=== PATIENT | male | born 1950 | race Caucasian/White ===

== ENCOUNTER 2016-09-07 12:37 | Inpatient (IN) ==
[2016-09-07 13:23] LABS: MANUAL DIFF NEEDED? NO
[2016-09-07 13:29] LABS: BASO% 0.7 % (0.0-0.8); EOS# 0.27 X1000 (0.0-0.7); EOS% 2.8 % (0.0-10.0); HEMATOCRIT 42.2 % (42.0-52.0); HEMOGLOBIN 13.5 g/dL (14.0-18.0); IMM GRAN# 0.06 X1000 (0.0-0.04); IMM GRAN% 0.6 % (0.0-0.5); LYMPH# 2.55 X1000 (1.2-3.4); LYMPH% 26.6 % (20.5-51.1); MCH 24.3 PG (27-31); MONO# 0.75 X1000 (0.11-0.59); MONO% 7.8 % (1.7-9.3); MPV 11.1 FL (7.4-10.4); NEUT% 61.5 % (42.2-75.2); PLT 307 X1000 (130-400); RBC 5.55 XMIL (4.7-6.1)
--- NOTE | 2016-09-07 13:45 | Diag Imaging Result Document ---
PROCEDURE NAME: HEAD W/O CONTRAST - 09/07/2016 CT BRAIN WITHOUT CONTRAST. DOSE REDUCTION PROTOCOL. FINDINGS: No parenchymal hemorrhage. No epidural or subdural hematoma. No subarachnoid hemorrhage. No mass identified on this noncontrasted exam. There is atrophy with chronic microvascular ischemic changes. Old lacune in the right basal ganglia. Prominent mucous in the ethmoid sinuses with a small amount in the frontal sinuses. There is also a small amount in the left maxillary sinus. IMPRESSION: 1. No hemorrhage. 2. Atrophy with chronic microvascular ischemic changes and an old right lacune. 3. Mild sinusitis. A preliminary report was given at 1:29 p.m..
[2016-09-07] MEDS ORDERED: ASPIRIN PO ONE (13:47)
--- NOTE | 2016-09-07 13:54 | PROVIDER DOCUMENTATION ---
This chart was entered by Antwan Medina Scribe, acting as scribe for Arcadio Olivarez MD. HPI-Neurological Disorder - General Chief Complaint: Stroke-Like Symptoms Stated Complaint: stroke like sx Time Seen by Provider: 09/07/16 12:46 Source: patient Allergies/Adverse Reactions: Patient Allergies Allergy/AdvReac Type Severity Reaction Status Date / Time No Known Allergies Allergy Verified 09/07/16 13:20 Home Medications: Home Medication List Medication Instructions Recorded Confirmed Last Taken Type Glyburide/Metformin HCl 1 each PO BID 09/07/16 09/07/16 09/07/16 10:30 History [Glyburide-Metformin 5-500 mg] Losartan Potassium [Cozaar] 25 mg PO DAILY 09/07/16 09/07/16 09/07/16 10:30 History SIMVAstatin [Zocor] 40 mg PO DAILY 09/07/16 09/07/16 09/07/16 10:30 History - History of Present Illness-Neuro Nature of Presenting Problem: PT C/O SLURRED SPEECH RIGHT SIDE FACIAL DROPPING AND RIGHT HAND NUMBNESS ONSET YESTERDAY MORNING. Onset/Duration: reports: 24 hours ago Timing: reports: still present Context: reports: impaired speech, facial droop Any recent trauma/injury?: reports: none Character of Deficits: reports: new weakness, impaired speech New weakness or altered sensation location:: reports: right facial, other ( RIGHT HAND NUMBNESS) Cognitive Baseline: alert, oriented x3 Gait Baseline: walks without assistance Associated Symptoms: reports: slurred speech, vision changes, other (RIGHJT HAND NUMBNESS). denies: short of breath, headache, decreased ability to walk or stand, fainting, confusion, chest pain, fever/chills, loss of consciousness Similar Symptoms Previously?: No Recently seen or treated by another doctor?: No Review of Systems - Adult - REVIEW OF SYSTEMS - ADULT Constitutional: denies: chills, fever, fatique Eyes: reports: double vision. denies: discharge, blurred vision Ears, Nose, Mouth & Throat: denies: hearing loss, sinus problem, throat swelling Cardiovascular: denies: chest pain, heart murmur, palpitations Respiratory: denies: cough, shortness of breath, wheezing Gastrointestinal: denies: abdominal pain, diarrhea, nausea, vomiting Genitourinary: denies: dysuria, flank pain, hematuria Musculoskeletal: denies: back pain, muscle aches, neck pain Integumentary: denies: hives, itching, rash Neurological: reports: numbness, slurred speech. denies: headache/migraines, loss of balance All Other Systems: Reviewed and Negative Past History - Adult - PAST MEDICAL HISTORY-ADULT Review of Records: reports: Nursing Assessment Review, Medications Reviewed Cardiovascular: reports: HTN Endocrine/Immune: reports: Diabetes Diabetes controlled by:: PO Meds - IMMUNIZATION STATUS Childhood Immunizations: See Nurse Assessment Flu Vaccine: See Nurse Assessment - FAMILY HISTORY Family History: reviewed, not pertinent - SOCIAL HISTORY Living Situation: family Physical Exam- Neurological - Physical Exam-Neuro General Appearance: alert, no apparent distress, mild distress Eye Exam: bilateral eye: normal inspection, PERRL, EOMI HENMT: normocephalic/atraumatic, moist mucous membranes, normal ENT inspection, TMs normal, pharynx normal Head Injury: no evidence of injury Neck: non-tender, full range of motion, supple, normal inspection Respiratory: chest non-tender, lungs clear, normal breath sounds, no pleuratic chest pain, no respiratory distress, no accessory muscle use Cardiovascular: normal peripheral pulses, regular rate, rhythm, no edema, no gallop, no JVD, no murmur Abdominal Exam: normal bowel sounds, non tender, soft, no organomegaly, no pulsatile mass Lymphatic: no adenopathy Extremity: normal range of motion, non-tender, normal gait, normal inspection, no pedal edema, no calf tenderness, normal capillary refill, 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 Exam: normal hearing, PERRL, abnormal speech, facial droop Coordination/Gait: normal finger to nose, normal gait, negative Romberg's sign Neurologic: facial droop Integumentary: normal color, normal turgor, warm/dry - Glascow Coma Scale Best Eye Response: (4) open spontaneously Best Verbal Response: (5) oriented Best Motor Response: (6) obeys commands Total Glascow Score: 15 Progress - PLAN OF CARE/RESULTS Progress/Plan/Lab Results: Vital Signs - 8 hr 09/07/16 12:38 Temperature 97.7 F Pulse Rate 87 Respiratory Rate 20 Blood Pressure 160/76 O2 Sat by Pulse Oximetry 100 Laboratory Results - last 24 hr 09/07/16 13:05 WBC 9.59 RBC 5.55 Hgb 13.5 L Hct 42.2 MCV 76.0 L MCH 24.3 L MCHC 32.0 L RDW Std Deviation 17.2 H Plt Count 307 MPV 11.1 H Immature Gran % (Auto) 0.6 H Neut % (Auto) 61.5 Lymph % (Auto) 26.6 [place] % (Auto) 7.8 Eos % (Auto) 2.8 Baso % (Auto) 0.7 Immature Gran # (Auto) 0.06 H Neut # (Auto) 5.89 Lymph # (Auto) 2.55 [place] # (Auto) 0.75 H Eos # (Auto) 0.27 Baso # (Auto) 0.07 Orders Category Date Time Status Aquino Cath Insertion ORDERED Care 09/07/16 13:19 Inactive NG/OG/Feeding Tube Insertion ORDERED Care 09/07/16 13:18 Inactive HEAD W/O CONTRAST [CT] Stat Exams 09/07/16 13:04 Draft CBC WITH ELECTRONIC DIFF [HEME] Stat Lab 09/07/16 13:05 Completed COMPREHENSIVE METABOLIC PANEL [CHEM] Stat Lab 09/07/16 13:05 Received UA NIMS W/REFLEX CULT [URINALYSIS] Stat Lab 09/07/16 13:04 Uncollected Aspirin Med 09/07/16 13:47 Once 325 mg PO NOW ONE EKG [EKG] Stat Ther 09/07/16 12:44 Ordered Result Diagrams: 09/07/16 13:05 - EKG 1 Time of EKG reading by physician:: 13:23 EKG Read and Signed by:: Arcadio Olivarez Rate: 87 Rhythm: NSR Gates: normal QRS: normal DE Interval: normal ST Wave: normal Departure - Departure Time of Disposition Decision: 13:53 DIAGNOSIS: CVA (cerebral vascular accident) Qualifiers: CVA mechanism: other Qualified Code(s): I63.8 - Other cerebral infarction Disposition: ADMITTED INPATIENT 09 Certified Medical Emergency: Emergent Condition: Fair Referrals and Follow-Ups: Luci Pickering MD [Primary Care Provider] - - Critical Care Note This patient required my direct & personal management of CC.: Yes Total Time (mins): 30 Critical Care Statement: This patient required my direct personal management to treat or rule out processes, the absence of which, could potentiallly result in sudden, clinically significant life or limb threatening deterioration. This chart was documented by the indicated scribe, (Antwan Medina Scribe) and accurately reflects the services I performed and decisions made by , Arcadio Olivarez MD, as attested by the provider's signature.
[2016-09-07 13:56] LABS: AGAP 11; ALBUMIN 3.4 g/dL (3.5-5.0); ALKALINE PHOSPHATASE 109 U/L (32-122); BUN 10 mg/dL (8-22); CALCIUM 8.9 mg/dL (8.8-10.2); CHLORIDE 98 mmol/L (98-107); COSMO 282; GOT 10 U/L (10-34); GPT 8 U/L (10-44); POTASSIUM 4.2 mmol/L (3.5-5.1); SODIUM 135 mmol/L (136-145); TCO2 26 mmol/L (25-35); TOTAL BILIRUBIN 0.26 mg/dL (0.20-1.00); TOTAL PROTEIN 6.8 g/dL (6.3-8.3)
[2016-09-07 14:02] LABS: URINE CULTURE NEEDED? NO; URINE MICRO REVIEW NEEDED? NO; URINE SOURCE CLEAN CATCH
[2016-09-07 14:06] LABS: BILIRUBIN URINE NEGATIVE (NEGATIVE); BLOOD URINE NEGATIVE (NEGATIVE); COLOR YELLOW; GLUCOSE URINE >1000 mg/dL (NEGATIVE); LEUKOCYTES URINE NEGATIVE (NEGATIVE); NITRITE URINE NEGATIVE (NEGATIVE); PROTEIN URINE TRACE mg/dL (NEGATIVE); SP GRAVITY URINE 1.022; TURBIDITY URINE CLEAR (CLEAR); UR EPITHELIAL CELLS <10 /HPF (<10); URINE BACTERIA NEGATIVE /HPF; URINE RBC <10 /HPF (<10); URINE WBC <10 /HPF (<10); UROBILINOGEN URINE NORMAL (NORMAL)
[2016-09-07] MEDS ORDERED: HUMULIN R SUBQ ONE (14:21)
--- NOTE | 2016-09-07 14:24 | EKG Report ---
Test Performed on : 09/07/2016 12:44:14 PM Test Reason : weakness Blood Pressure : / mmHG Vent. Rate : 087 BPM Atrial Rate : 087 BPM P-R Int : 184 ms QRS Dur : 092 ms QT Int : 372 ms P-R-T Axes : 032 -18 017 degrees QTc Int : 447 ms Normal sinus rhythm. Low voltage QRS Incomplete right bundle branch block Borderline ECG No previous ECGs available Unconfirmed Result
--- NOTE | 2016-09-07 16:54 | HISTORY AND PHYSICAL ---
PRIMARY CARE PHYSICIAN: Dr. Pickering. CHIEF COMPLAINT: Right-sided weakness. HISTORY OF PRESENT ILLNESS: Mr. Singh is a 66-year-old, male with a history of obesity, nicotine dependence, diabetes mellitus, hypertension, hyperlipidemia, who presents to the ER with around 36 hours of right facial numbness, right arm weakness and slurred speech. He states yesterday he woke up and had some numbness around the right side of his face and he had some mild right arm weakness. He did not go to the ER at that time. Instead, his symptoms progressed this morning to worsening right arm weakness and his family noticed that he was slightly confused and had slurred speech. They also noted a right facial droop. It was at that time he came to the ER. He denies any chest pain or shortness of breath. He denies any abdominal pain, nausea, vomiting, or diarrhea. He denies any dysuria. He does report some blurry vision but no loss of vision, or consciousness. He came to the ER for evaluation. In the ER he had labs and diagnostics done. Head CT showed chronic microvascular changes as well as old lacunar infarct on the right. His EKG showed normal sinus rhythm with incomplete right bundle branch block. Laboratory data shows hyperglycemia and mild anemia. On physical exam, he does have some right upper extremity weakness and right facial droop. Otherwise his exam is benign. He is now going to be admitted for further treatment and evaluation. PAST MEDICAL HISTORY: 1. Hypertension. 2. Type 2 diabetes. 3. Hyperlipidemia. 4. Questionable congestive heart failure multiple years ago. SURGICAL HISTORY: He had open reduction, internal fixation of the right arm secondary to an accident multiple years ago. SOCIAL HISTORY: He smokes 2 packs a day. He has a remote history of alcohol dependence but nothing recent or current. There is no history of drug use. He is retired. His and family are at the bedside. FAMILY HISTORY: Mother from complications from diabetes at 92 years old. Father at 57 years old from an CO. His brother is currently at [facility] for massive stroke. REVIEW OF SYSTEMS: Fourteen-point review of systems obtained and found to be negative with the exception of the HPI. HOME MEDICATIONS: Glyburide, metformin 1 b.i.d., Cozaar 25 mg daily, Zocor 40 mg daily. ALLERGIES: No known drug allergies. PHYSICAL EXAMINATION: VITAL SIGNS: Blood pressure is 133/74, heart rate 76, respiratory rate is 18. O2 saturations 100% on room air. Temperature is 97.7 degrees. GENERAL: This is an obese male, lying in the hospital bed in no acute distress. NEUROLOGIC: The patient has some mild right-sided facial droop and right upper extremity weakness. He is slightly confused as to the day of the week. Otherwise all other orientation questions are answered correctly. HEENT: Head is atraumatic, normocephalic. His pupils are equal, round, reactive to light. His oral mucosa is moist. Trachea is midline. There is no JVD. CHEST: Clear to auscultation bilaterally. CV: Regular rate and rhythm. S1, S2 is noted. GI: Soft, nondistended, nontender. Bowel sounds are positive. EXTREMITIES: Trace edema. No clubbing or cyanosis. DIAGNOSTIC DATA: Head CT shows chronic changes and old right lacunar infarct. EKG sinus rhythm with incomplete right bundle branch block. WBC 9.59, hemoglobin 13.5, hematocrit 42.2, platelet count 307,000. Sodium 135, potassium 4.2, chloride 98, CO2 26, anion gap is 11. BUN is 10. Creatinine 0.9. Glucose is 327. LFTs within normal limits. Albumin 3.4. UA shows glucose greater than 1000 and trace protein. ASSESSMENT AND PLAN: 1. Acute versus subacute CVA: We are going to admit the patient with a stroke protocol. We are going to order MRI and MRA of the head. Will order carotid ultrasound and echocardiogram. We will allow permissive hypertension the first 24 hours. We will make sure the patient is on aspirin and a high intensity statin. We will check lipid panel and hemoglobin A1c. Admit to the floor with telemetry and check neuro checks every 4 hours for the first 24 hours. 2. Type 2 diabetes: Will check a hemoglobin A1c. Add pattern sugars and sliding scale insulin. Will hold his oral medications for now. 3. Hypertension: All oral antihypertensives on hold to allow for permissive hypertension. 4. Nicotine dependence. We discussed nicotine cessation strategies with the patient. He refused and states he does not wish to quit smoking. 5. Microcytic anemia: Iron studies have been ordered. We are going to trend those and treat accordingly. 6. DVT prophylaxis will be provided with Lovenox. Further recommendations to follow. Dictated by LEXII Kovacs for Ana Rangel MD cc: LEXII Kovacs MD Bhavna Gowda, MD
[2016-09-07] MEDS: HUMALOG SUBQ SCH ×2 (18:55→21:22)
[2016-09-07] MEDS: NICODERM PATCH TD SCH (18:59)
[2016-09-07] MEDS: LOVENOX SUBQ SCH (19:00)
[2016-09-07] MEDS: DUONEB (A & A) INH SCH ×2 (19:35→23:07)
[2016-09-07 20:05] LABS: HEMOGLOBIN A1C 9.7 % (4.8-6.0)
[2016-09-07 20:29] LABS: FREE T4 1.2 ng/dL (0.93-1.70)
[2016-09-07 20:41] LABS: IRON SATURATION 11 %; TIBC 218 ug/dL; TOTAL IRON 24 ug/dL (53-167); UNBOUND IRON 194 ug/dL (112-346)
[2016-09-07] MEDS ORDERED: LIPITOR PO SCH (21:00)
[2016-09-07] MEDS ORDERED: ATIVAN IV PRN (21:12)
[2016-09-08] MEDS: DUONEB (A & A) INH SCH ×4 (03:33→15:44)
[2016-09-08] MEDS: HUMALOG SUBQ SCH ×3 (06:09→16:09)
[2016-09-08 07:37] LABS: HEMATOCRIT 40.6 % (42.0-52.0); HEMOGLOBIN 12.9 g/dL (14.0-18.0); MCH 24.2 PG (27-31); MCHC 31.8 g/dL (33-37); MPV 11.3 FL (7.4-10.4); RBC 5.34 XMIL (4.7-6.1)
[2016-09-08 08:01] LABS: AGAP 13; BUN 8 mg/dL (8-22); CALCIUM 8.8 mg/dL (8.8-10.2); CHLORIDE 101 mmol/L (98-107); COSMO 281; POTASSIUM 4.1 mmol/L (3.5-5.1); SODIUM 140 mmol/L (136-145); TCO2 26 mmol/L (25-35)
--- NOTE | 2016-09-08 08:42 | CONSULTATION ---
DATE OF CONSULTATION: 09/08/2016 HISTORY OF PRESENT ILLNESS: Mr. Singh is 66 years old and it looks like he has had a stroke. History from the patient is that he felt well Tuesday night. Tuesday morning, he had a sense of numbness over the right side of his face and in the right hand. There was no gait difficulty. He did not notice enrique weakness. Later in the day Tuesday, family noticed slurred speech. He had some trouble chewing and swallowing. He reported blurred vision and then later reported enrique horizontal diplopia. Diplopia resolved when he covered either eye. He presented to the hospital yesterday and was admitted. This morning, he reports the right-sided numbness is improved and he has not had any further vision disturbance. Family reports speech is nearly completely recovered. It is not clear that he had trouble finding words or understanding conversation. Family did not notice unsteady gait. He did not fall. There was never altered awareness or unconsciousness. He did not have significant headache. There is no history of previous clinical stroke, but workup includes noncontrast CT of the head reported to show old appearing right basal ganglia, lacune and some generalized atrophy. He has past history of hypertension, dyslipidemia, diabetes mellitus, and he continues to smoke cigarettes. He has not been using antiplatelet medicines. He reports blood sugars usually 120s- 140s range, but blood sugar was over 200 yesterday and then later over 300 for the first time in many months. He has been afebrile. Systolic blood pressures were initially 160s, later down to 120s. He has tolerated that range. Heart rate has ranged from 60s to 80s. Lab work shows triglycerides 156, total cholesterol 159, LDL 99, VLDL 31, HDL 34. He has very mild anemia. Blood sugars have been over 300 this admission. A1c was 9.7. On exam, Mr. Singh is awake, alert, attentive and appropriate. Speech is not dysarthric right now. Language function is intact on brief bedside testing. Remote memory is good. Recent memory is fair. I did not test his cognitive function further (family reports he has had some forgetfulness in recent months ). He has full visual alva tested grossly by confrontational finger counting monocularly and binocularly. Extraocular movements are full to confrontation. He reports no diplopia on careful testing with gaze right and left, gaze up and down, gazeahead. Facial motility is good bilaterally. He reports equal pinprick and light touch appreciation over the face now. Gag is intact. Tongue is midline. Hearing is good. Shoulder shrug is equal. Strength is normal in the left limbs. I can overcome the right deltoid grading 4/5. There is very slight right pronator drift. He did well on exihdu-je-msup testing bilaterally. He did rapid alternating movements slightly better with the left hand than the right. He has a stocking pattern of sensory loss bilaterally. Proprioception is good at the great toe MTP joint bilaterally. I did not test his gait. Reflexes are 1+ at the wrists and absent at the ankles bilaterally. Plantar response is silent bilaterally. IMPRESSION: Mild right hemiparesis, reported associated right-sided numbness and slurred speech. All of this is consistent with likely subcortical dominant left hemisphere infarction. I am not certain there was definite dysphasia, but if so, that would indicate involvement in the hemisphere. The diplopia is more difficult to explain. He could have had transient ischemic cranial ocular mononeuropathy associated with his risk factors for ischemic problems. There also is possibility of brainstem lesion, probably in the left catrina, causing right face and hand numbness with dysarthria and horizontal diplopia. Features are not typical of isolated dysarthria, clumsy hand syndrome. He has MRI ordered and further plans will depend on that report. I agree with management, including adding aspirin, continuing statin, aggressive management of blood sugar, DVT prophylaxis. We can treat blood pressure cautiously until we have results of workup. Thanks for asking me to see Mr. Singh. cc: MD NAYELI Kurtz III
[2016-09-08] MEDS ORDERED: ASPIRIN PO SCH (09:00)
[2016-09-08] MEDS: NICODERM PATCH TD SCH (09:43)
--- NOTE | 2016-09-08 09:48 | Diag Imaging Result Document ---
PROCEDURE NAME: MRA BRAIN W/O CONTRAST - 09/07/2016 MR ANGIOGRAPHY OF THE [place]. MIP IMAGES OBTAINED: FINDINGS: There is normal flow in each distal internal carotid artery. Normal filling of the anterior and middle cerebral arteries. No stenoses. No aneurysm. Normal flow in the basilar artery. Normal filling of each posterior cerebral artery. No stenosis. IMPRESSION: Normal MR angiography of the [place].
--- NOTE | 2016-09-08 09:55 | Diag Imaging Result Document ---
PROCEDURE NAME: MRI BRAIN W/O CONTRAST - 09/07/2016 MRI BRAIN WITHOUT: TECHNIQUE: Axial, sagittal, and coronal images obtained in multiple sequences. FINDINGS: There is evidence of a recent small left pontine lacunar infarct. No other recent infarct. The patient has atrophy with chronic microvascular ischemic changes. Old lacune in the right basal ganglia. No mass or midline shift. No epidural or subdural fluid collection. Prominent mucus in the ethmoid sinuses with a small amount of mucus in the left maxillary and left sphenoid sinuses. Minimal mucosal thickening in the left frontal sinus. IMPRESSION: 1. Acute left pontine lacune. 2. Atrophy with chronic microvascular ischemic changes. 3. Mild sinusitis.
--- NOTE | 2016-09-08 12:19 | ECHO REPORT ---
ORDER DATE: 09/07/2016 INTERPRETING PHYSICIAN: Dr. Whitlock REQUESTING PHYSICIAN: CLINICAL INDICATIONS: A 66-year-old male with a stroke, diabetes, a smoker. M-MODE MEASUREMENTS: Right ventricle: 3.3 cm. Left ventricle end diastole: 5.9 cm. Left ventricle end systole: 4.0 cm. Posterior wall: 1.0 cm. Interventricular septum: 1.0 cm. Left atrium: 4.7 cm. Aortic root: 4.0 cm. SUMMARY OF 2-DIMENSIONAL IMAGIN. The left ventricular function appears to be normal, ejection fraction is estimated at 57%. No definite wall motion abnormalities noted. 2. The right ventricle is mildly enlarged. It showed good function. 3. The aortic valve looks normal, color flow mapping unremarkable. 4. The mitral valve looks normal, color flow mapping unremarkable. Pulsed wave Doppler of mitral inflow shows mild reversal of the E and the A wave. 5. The tissue Doppler of septal and lateral mitral annulus averages 9 cm. There is no diastolic dysfunction. 6. The inferior vena cava is not dilated. 7. The tricuspid valve shows trace of regurgitation. The pulmonary pressure is estimated at 28 mmHg. 8. The pulmonic valve appears to be grossly normal, color flow mapping unremarkable. 9. There is no pericardial effusion, masses, nor thrombus. CONCLUSIONS: In summary, this study shows: 1. Normal left ventricular systolic function. 2. Enlargement of the left ventricle of mild degree. 3. Normal aortic, mitral, pulmonic, and tricuspid valves. 4. No diastolic dysfunction. 5. No pulmonary hypertension. Clinical correlation is recommended. cc: MD Ghasasn Ley CRNP
[2016-09-08] MEDS: LOVENOX SUBQ SCH (15:08)
[2016-09-08 15:30] VITALS: BP 155/71
--- NOTE | 2016-09-08 19:16 | DISCHARGE SUMMARY ---
ADMISSION DATE: 09/07/2016 DISCHARGE DATE: 09/08/2016 CONSULTATION: Ike Chun III, MD. PERTINENT PROCEDURES: 1. Head CT showed no hemorrhages, atrophy with chronic microvascular ischemic changes, an old right infarct, mild sinusitis. 2. Brain MRA showed normal MR of the [place]. 3. Brain MRI showed acute left pontine , atrophy with chronic microvascular ischemic changes, mild sinusitis. 4. Echocardiogram showed an EF of 57%. DISCHARGE DIAGNOSES: 1. Subcortical dominant left hemisphere infarction with mild right hemiparesis associated with right-sided numbness and slurred speech. Continue with aspirin, statin and aggressive risk factor management of blood sugars. 2. Type 2 diabetes. Continue with medications. 3. Hypertension. Continue with antihypertensive. 4. Nicotine dependence. Daily smoking cessation as well as the means to quit have been discussed with the patient. However, he states that he does not want to quit smoking. 5. Microcytic anemia. HOSPITAL COURSE: Mr. Singh is a 66-year-old male with a history of obesity, nicotine dependence who does not wish to quit smoking, diabetes mellitus, hypertension, hyperlipidemia who presented to the ED with 36 hours of right facial numbness, right arm weakness and slurred speech. In the ED he had laboratory data and diagnostics done. Head CT showed chronic microvascular ischemic changes as well as an old infarct. Laboratory data showed hyperglycemia and mild anemia. On physical examination, there was upper extremity weakness as well as right facial droop. The patient was admitted for acute versus subacute CVA workup with a consultation for Dr. Chun. The patient was found to have mild right-sided hemiparesis with right-sided numbness and slurred speech all consistent with the cortical dominant left hemisphere infarction and to continue with management of aspirin, statin, aggressive modification of risk factors along with his blood sugar and smoking. Dr. Rangel spoke with Dr. Chun. The patient is being discharged today. He states he lives with his . VITAL SIGNS AT TIME OF DISCHARGE: Temperature is 98.4 degrees, heart rate 81, respirations 14, blood pressure 140/75, O2 is 96% on room air. DISCHARGE DIET: Diabetic. DISCHARGE MEDICATIONS: 1. Aspirin 325 mg p.o. daily. 2. Lipitor 40 mg p.o. at bedtime. 3. Glyburide/metformin 5/500, 1 each p.o. b.i.d. 4. Levaquin 500 mg p.o. daily. 5. Cozaar 25 mg p.o. daily. 6. NicoDerm patch 21 mg TD daily. FOLLOWUP: Patient is being discharged home. He has been educated on modifying risk factors such as keeping control of his blood sugar, diet as well as smoking cessation. Patient can return to the ED for any worsening of symptoms. DISCHARGE TIME: 30 minutes. Dictated by LEXII Sahu for Ana Rangel MD cc: MD Luci Torres MD
--- NOTE | 2016-09-13 09:30 | Carotid Study ---
DATE: 09/07/2016 PROCEDURE: Carotid duplex imaging. REFERRING PHYSICIAN: Dr. Rangel INTERPRETING PHYSICIAN: Dr. Delvalle TECH: [place] INDICATIONS: Stroke. OBSERVED DATA RIGHT LEFT Brachial Blood Pressure Carotid Pulse Bruits: Carotid/Sub DIAGRAM OF ULTRASOUND IMAGING R L RIGHT INT EXT INT EXT LEFT Jose A (cm/s) Jose A (cm/s) Subclavian 77/0 Subclavian 90/0 CCA Proximal 87/12 CCA Proximal 77/15 CCA Distal 74/14 CCA Distal 72/16 Bulb 46/10 Bulb 62/13 ICA Proximal 39/13 ICA Proximal 55/15 ICA Mid 57/18 ICA Mid 67/22 ICA Distal 80/26 ICA Distal 78/27 ECA 79/7 ECA 82/8 Vertebral 53/17 Vertebral 59/18 ICA/CCA Ratio 0.9 ICA/CCA Ratio 1.0 % Stenosis 0 to 39 % Stenosis 0 to 39 FINDINGS: There is minimal atherosclerotic disease in the carotid systems bilaterally. There is antegrade vertebral flow. There are no ulcerative plaques or hemodynamically significant stenoses. PHYSICIAN INTERPRETATION: Unremarkable carotid imaging study. cc: MD Ghassan Cristobal CRNP
== END 2016-09-08 16:20 | disposition home or self-care (01) ==
LOC: ED 12:37 → 3N 18:14
PROVIDERS: ATTEND Internal Medicine